=== PATIENT | male | born 1940 | race Caucasian/White ===

== ENCOUNTER 2025-01-06 14:21 | Inpatient (IN) | payer MEDICARE, OTHER ==
[~2025-01-06] VITALS: Ht 177.8 cm; Wt 79.4 kg
[2025-01-06 14:43] LABS: BASOPHILS % (AUTO) 0.7 % (0.0-2.0); EOSINOPHILS # (AUTO) 0.2 K/uL (0.0-0.7); EOSINOPHILS % (AUTO) 4.6 % (0.0-6.0); HEMATOCRIT 41 % (39-51); HEMOGLOBIN 13.8 g/dL (13.5-17.5); LYMPHOCYTES # (AUTO) 0.8 K/uL (0.8-4.8); LYMPHOCYTES % (AUTO) 15.8 % (20.0-44.0); MEAN CORPUSCULAR HEMOGLOBIN 31 PG (26.0-33.0); MEAN CORPUSCULAR HGB CONC 33 g/dl (31.0-36.0); MEAN CORPUSCULAR VOLUME 92 fL (80-96); MONOCYTES # (AUTO) 0.3 K/uL (0.1-1.30); MONOCYTES % (AUTO) 6.4 % (2.0-12.0); NEUTROPHILS # (AUTO) 3.5 K/uL (1.8-8.9); NEUTROPHILS % (AUTO) 72.5 % (43.0-81.0); PLATELET COUNT (AUTO) 128 K/uL (150-450); RED CELL DISTRIBUTION WIDTH 14.7 % (11.5-15.0); WHITE BLOOD COUNT (AUTO) 4.8 K/uL (4.3-11.0)
[2025-01-06 14:53] LABS: CALCIUM, SERUM 9.2 mg/dL (8.5-10.1); CARBON DIOXIDE 25 mmol/L (21-32); CHLORIDE 108 mmol/L (98-107); CREATININE 0.7 mg/dL (0.6-1.3); GLUCOSE 140 mg/dL (74-106); POTASSIUM 3.9 mmol/L (3.5-5.1); SODIUM SERUM 140 mmol/L (136-145); UREA NITROGEN, BLOOD 21 mg/dL (7-18)
[2025-01-06 14:58] LABS: INR 1.16 (0.91-1.10); PARTIAL THROMBOPLASTIN TIME 23.8 SEC (24.3-34.3); PROTHROMBIN TIME 11.8 SECS (9.2-11.1)
[2025-01-06 14:59] LABS: ALANINE AMINOTRANSFERASE 35 U/L (12-78); ALBUMIN 3.3 g/dL (3.4-5.0); ALKALINE PHOSPHATASE 153 U/L (46-116); ASPARTATE AMINOTRANSFERASE 26 U/L (15-37); BILIRUBIN,DIRECT 0.4 mg/dL (0.0-0.2); BILIRUBIN,TOTAL 1.2 mg/dL (0.2-1.0); TOTAL PROTEIN, SERUM 6.8 g/dL (6.4-8.2)
[2025-01-06] MEDS ORDERED: LORAZEPAM INJ 2 MG/ML VIAL ONE (15:46)
[2025-01-06] MEDS ORDERED: LOSA25TA27 PO (16:05)
[2025-01-06] MEDS ORDERED: ZINC56.713 TP (16:05)
[2025-01-06] MEDS ORDERED: TAMS-12 PO (16:05)
[2025-01-06] MEDS ORDERED: APIX2.5T PO (16:05)
[2025-01-06] MEDS ORDERED: OXYC1TAB8 PO (16:05)
[2025-01-06] MEDS ORDERED: MULT-213 PO (16:05)
[2025-01-06] MEDS ORDERED: VITS42.53 TP (16:05)
[2025-01-06] MEDS ORDERED: ACET325T53 PO ×2 (16:05)
[2025-01-06] MEDS ORDERED: HYDR-4076 PO (16:05)
[2025-01-06] MEDS ORDERED: ATOR80TA PO (16:05)
[2025-01-06] MEDS ORDERED: POLY15DR31 EACHEYE (16:05)
[2025-01-06] MEDS ORDERED: MAGN400O6 PO (16:05)
[2025-01-06] MEDS ORDERED: METO25TA4 PO (16:05)
[2025-01-06] MEDS ORDERED: POLY17PO4 PO (16:05)
[2025-01-06] MEDS: LORAZEPAM INJ 2 MG/ML VIAL IV ONE (16:20)
[2025-01-06] MEDS: LEVETIRACETAM (500MG) 1,000 MG in IV NS 0.9% 90 ML IV SCH ×2 (16:30→16:46)
[2025-01-06 16:31] LABS: APPEARANCE,URINE CLEAR (CLEAR); BILIRUBIN,URINE Negative (NEGATIVE); BLOOD, URINE Negative Ery/uL (NEGATIVE); COLOR,URINE YELLOW (YELLOW); KETONES,URINE Negative (NEGATIVE); LEUKOCYTE ESTERASE ,URINE Negative (NEGATIVE); PROTEIN,URINE 100 mg/dl (NEGATIVE); UGLUCOSE Negative (NEGATIVE); UROBILINOGEN,URINE 0.2 EU/dL (0.2)
[2025-01-06 16:32] LABS: NITRITE, URINE NEGATIVE (NEGATIVE)
[2025-01-06 16:33] LABS: ADD URINE CULTURE NO; BACTERIA,URINE None seen /HPF (None Seen); RBC,URINE 0-2 /HPF (0-2); SQUAMOUS EPITHELIAL CELL,UR None Seen /HPF (None Seen); WBC,URINE 0-2 /HPF (0-3)
[2025-01-06] MEDS ORDERED: ONDANSETRON HCL/PF 4 MG/2 ML VIAL IVP PRN (17:00)
[2025-01-06] MEDS ORDERED: ACETAMINOPHEN 325 MG TABLET PO PRN (17:00)
[2025-01-06] MEDS ORDERED: LEVETIRACETAM (500MG) 500 MG in IV NS 0.9% 100 ML IV SCH (17:00)
[2025-01-06] MEDS ORDERED: LORAZEPAM INJ 2 MG/ML VIAL IV SCH (17:00)
[2025-01-06] MEDS: POLYVINYL ALCOHOL 15 ML BOTTLE EACHEYE SCH (17:00)
[2025-01-06] MEDS ORDERED: MAG HYDROX/AL HYDROX/SIMETH 30 ML UDC PO PRN (17:00)
[2025-01-06] MEDS ORDERED: MAGNESIUM HYDROXIDE 30 ML UDC PO PRN (17:00)
[2025-01-06] MEDS ORDERED: DEXTROSE 50%-WATER 50 ML DISP.SYRIN IV PRN (19:30)
[2025-01-06] MEDS: DOXYCYCLINE 100 MG in IV D5W 100 ML IV SCH (21:00)
[2025-01-06] MEDS: ATORVASTATIN 40 MG TABLET PO SCH (22:00)
[2025-01-06] MEDS: TAMSULOSIN 0.4 MG CAP.SR.24H PO SCH (22:00)
[2025-01-06] MEDS: BLOOD SUGAR DIAGNOSTIC 1 EACH STRIP IN SCH (22:31)
[2025-01-07] MEDS ORDERED: DOXYCYCLINE 100 MG VIAL ONE (00:30)
[2025-01-07 02:30] VITALS: BP 177/124; TEMP 97.7; O2SAT 100
[2025-01-07] MEDS: IV NS 0.9% 1,000 ML IV PRN (02:39)
[2025-01-07] MEDS: hydrALAZINE HCL IV 20 MG VIAL IV PRN (04:17)
[2025-01-07] MEDS ORDERED: LEVETIRACETAM (500MG) 500 MG/5 ML VIAL IV ONE (04:31)
[2025-01-07 04:33] VITALS: BP 141/90; TEMP 97.9; O2SAT 99
[2025-01-07 06:44] LABS: BASOPHILS % (AUTO) 0.3 % (0.0-2.0); EOSINOPHILS % (AUTO) 0.6 % (0.0-6.0); HEMATOCRIT 40 % (39-51); HEMOGLOBIN 13.6 g/dL (13.5-17.5); LYMPHOCYTES # (AUTO) 0.7 K/uL (0.8-4.8); LYMPHOCYTES % (AUTO) 10.4 % (20.0-44.0); MEAN CORPUSCULAR HEMOGLOBIN 31 PG (26.0-33.0); MEAN CORPUSCULAR HGB CONC 34 g/dl (31.0-36.0); MEAN CORPUSCULAR VOLUME 93 fL (80-96); MONOCYTES # (AUTO) 0.4 K/uL (0.1-1.30); NEUTROPHILS % (AUTO) 83.7 % (43.0-81.0); PLATELET COUNT (AUTO) 131 K/uL (150-450); RED BLOOD CELL COUNT(AUTO) 4.35 MIL/uL (4.5-6.0); WHITE BLOOD COUNT (AUTO) 7.1 K/uL (4.3-11.0)
[2025-01-07 06:54] LABS: CALCIUM, SERUM 9.3 mg/dL (8.5-10.1); CREATININE 0.6 mg/dL (0.6-1.3); MAGNESIUM 1.9 mg/dL (1.8-2.4); PHOSPHORUS 2.6 mg/dL (2.5-4.9); POTASSIUM 3.7 mmol/L (3.5-5.1)
[2025-01-07 07:30] VITALS: BP 139/83; TEMP 98.1; O2SAT 97
[2025-01-07] MEDS: LOSARTAN POTASSIUM 25 MG TABLET PO SCH (08:44)
[2025-01-07] MEDS: APIXABAN 2.5 MG TABLET PO SCH (08:44)
[2025-01-07] MEDS: MULTIVIT W/MINERALS 1 TAB TABLET PO SCH (08:45)
[2025-01-07] MEDS: POLYETHYLENE GLYCOL 3350 17 GM POWD.PACK PO SCH (08:45)
[2025-01-07] MEDS: METOPROLOL SUCCINATE 25 MG TAB.SR.24H PO SCH (08:45)
[2025-01-07] MEDS: LEVETIRACETAM (500MG) 1,000 MG in IV NS 0.9% 90 ML IV SCH (09:17)
[2025-01-07] MEDS: Z GUARD REMEDY 4 OZ OINT TP PRN (09:19)
[2025-01-07] MEDS: CEFTRIAXONE 1 G in IV D5W 50 ML IV SCH (09:53)
[2025-01-07] MEDS: INSULIN REGULAR, HUMAN 100 UNIT/ML 3 ML VIAL SQ PRN (11:09)
[2025-01-07 16:00] VITALS: BP 153/92; TEMP 97.2; O2SAT 99
[2025-01-07 20:00] VITALS: BP 147/92; TEMP 97.7; O2SAT 97
[2025-01-07] MEDS: LEVETIRACETAM IV SCH (20:51)
[2025-01-07] MEDS: NS 0.9% IV SCH (20:51)
[2025-01-08] VITALS: BP 180/98; TEMP 98.8; O2SAT 97
[2025-01-08 04:00] VITALS: BP 149/99; TEMP 98.4; O2SAT 96
[2025-01-08 06:17] LABS: BASOPHILS % (AUTO) 0.5 % (0.0-2.0); EOSINOPHILS # (AUTO) 0.1 K/uL (0.0-0.7); HEMATOCRIT 38 % (39-51); HEMOGLOBIN 12.8 g/dL (13.5-17.5); LYMPHOCYTES # (AUTO) 0.8 K/uL (0.8-4.8); MEAN CORPUSCULAR HEMOGLOBIN 31 PG (26.0-33.0); MEAN CORPUSCULAR HGB CONC 34 g/dl (31.0-36.0); MEAN CORPUSCULAR VOLUME 93 fL (80-96); MONOCYTES # (AUTO) 0.5 K/uL (0.1-1.30); NEUTROPHILS # (AUTO) 4.5 K/uL (1.8-8.9); NEUTROPHILS % (AUTO) 77.5 % (43.0-81.0); PLATELET COUNT (AUTO) 127 K/uL (150-450); RED BLOOD CELL COUNT(AUTO) 4.09 MIL/uL (4.5-6.0); WHITE BLOOD COUNT (AUTO) 5.9 K/uL (4.3-11.0)
[2025-01-08 06:26] LABS: CALCIUM, SERUM 8.9 mg/dL (8.5-10.1); CREATININE 0.6 mg/dL (0.6-1.3); POTASSIUM 3.4 mmol/L (3.5-5.1)
[2025-01-08 08:00] VITALS: BP 167/88; TEMP 98.4; O2SAT 96
[2025-01-08] MEDS: POTASSIUM CHLORIDE 20 MEQ TAB.PRT.SR PO ONE (11:04)
[2025-01-08 12:00] VITALS: BP 197/98; TEMP 97.7; O2SAT 100
[2025-01-08 16:00] VITALS: BP 173/95; TEMP 97.7; O2SAT 96
[2025-01-08 20:00] VITALS: BP 179/98; TEMP 97.5; O2SAT 99
[2025-01-09] VITALS: BP 120/86; TEMP 97.7; O2SAT 97
[2025-01-09 04:00] VITALS: BP 184/87; TEMP 97.7; O2SAT 99
[2025-01-09 06:42] LABS: BASOPHILS % (AUTO) 0.5 % (0.0-2.0); EOSINOPHILS # (AUTO) 0.3 K/uL (0.0-0.7); EOSINOPHILS % (AUTO) 5.3 % (0.0-6.0); HEMATOCRIT 39 % (39-51); HEMOGLOBIN 13.1 g/dL (13.5-17.5); LYMPHOCYTES # (AUTO) 0.7 K/uL (0.8-4.8); LYMPHOCYTES % (AUTO) 14.5 % (20.0-44.0); MEAN CORPUSCULAR HEMOGLOBIN 31 PG (26.0-33.0); MEAN CORPUSCULAR HGB CONC 34 g/dl (31.0-36.0); MEAN CORPUSCULAR VOLUME 92 fL (80-96); MONOCYTES # (AUTO) 0.4 K/uL (0.1-1.30); NEUTROPHILS # (AUTO) 3.5 K/uL (1.8-8.9); NEUTROPHILS % (AUTO) 71.7 % (43.0-81.0); PLATELET COUNT (AUTO) 116 K/uL (150-450); RED BLOOD CELL COUNT(AUTO) 4.19 MIL/uL (4.5-6.0); RED CELL DISTRIBUTION WIDTH 14.8 % (11.5-15.0); WHITE BLOOD COUNT (AUTO) 4.9 K/uL (4.3-11.0)
[2025-01-09 07:08] LABS: CALCIUM, SERUM 8.9 mg/dL (8.5-10.1); CREATININE 0.5 mg/dL (0.6-1.3); POTASSIUM 3.5 mmol/L (3.5-5.1)
[2025-01-09 08:00] VITALS: BP 141/88; TEMP 99; O2SAT 96
[2025-01-09 12:00] VITALS: BP 145/87; TEMP 97.7; O2SAT 99
[2025-01-09 20:00] VITALS: BP 150/77; TEMP 97.3; O2SAT 98
[2025-01-09] MEDS: LEVETIRACETAM SOL (5 ML) 100 MG/ML UDC PO SCH (21:06)
[2025-01-10 07:09] LABS: BASOPHILS % (AUTO) 0.4 % (0.0-2.0); EOSINOPHILS # (AUTO) 0.2 K/uL (0.0-0.7); HEMATOCRIT 39 % (39-51); HEMOGLOBIN 13.1 g/dL (13.5-17.5); LYMPHOCYTES # (AUTO) 0.7 K/uL (0.8-4.8); LYMPHOCYTES % (AUTO) 12.3 % (20.0-44.0); MEAN CORPUSCULAR HEMOGLOBIN 31 PG (26.0-33.0); MEAN CORPUSCULAR HGB CONC 34 g/dl (31.0-36.0); MEAN CORPUSCULAR VOLUME 92 fL (80-96); MONOCYTES # (AUTO) 0.4 K/uL (0.1-1.30); MONOCYTES % (AUTO) 7.3 % (2.0-12.0); NEUTROPHILS # (AUTO) 4.4 K/uL (1.8-8.9); PLATELET COUNT (AUTO) 109 K/uL (150-450); RED CELL DISTRIBUTION WIDTH 14.6 % (11.5-15.0); WHITE BLOOD COUNT (AUTO) 5.8 K/uL (4.3-11.0)
[2025-01-10 07:40] LABS: CALCIUM, SERUM 8.8 mg/dL (8.5-10.1); CREATININE 0.6 mg/dL (0.6-1.3); POTASSIUM 3.7 mmol/L (3.5-5.1)
[2025-01-10] MEDS ORDERED: GADOTERATE MEGLUMINE 10 MMOL/20 ML VIAL IV ONE (07:44)
[2025-01-10 08:00] VITALS: BP 196/111; TEMP 97.9; O2SAT 99
[2025-01-10 16:00] VITALS: BP 197/119; TEMP 98.2; O2SAT 98
[2025-01-10 20:00] VITALS: BP 152/99; TEMP 97.7; O2SAT 96
[2025-01-11 07:30] VITALS: BP 178/90; TEMP 97.3; O2SAT 98
[2025-01-11 07:43] VITALS: BP 178/90; TEMP 97.3; O2SAT 98
[2025-01-11 07:53] LABS: BASOPHILS % (AUTO) 0.7 % (0.0-2.0); EOSINOPHILS # (AUTO) 0.3 K/uL (0.0-0.7); EOSINOPHILS % (AUTO) 6.8 % (0.0-6.0); HEMATOCRIT 39 % (39-51); HEMOGLOBIN 13.1 g/dL (13.5-17.5); LYMPHOCYTES # (AUTO) 0.7 K/uL (0.8-4.8); LYMPHOCYTES % (AUTO) 14.6 % (20.0-44.0); MEAN CORPUSCULAR HEMOGLOBIN 31 PG (26.0-33.0); MEAN CORPUSCULAR HGB CONC 34 g/dl (31.0-36.0); MEAN CORPUSCULAR VOLUME 92 fL (80-96); MONOCYTES # (AUTO) 0.5 K/uL (0.1-1.30); MONOCYTES % (AUTO) 9.3 % (2.0-12.0); NEUTROPHILS # (AUTO) 3.5 K/uL (1.8-8.9); NEUTROPHILS % (AUTO) 68.6 % (43.0-81.0); PLATELET COUNT (AUTO) 109 K/uL (150-450); RED CELL DISTRIBUTION WIDTH 14.5 % (11.5-15.0); WHITE BLOOD COUNT (AUTO) 5.1 K/uL (4.3-11.0)
[2025-01-11 08:12] LABS: CALCIUM, SERUM 8.7 mg/dL (8.5-10.1); CREATININE 0.6 mg/dL (0.6-1.3); POTASSIUM 3.6 mmol/L (3.5-5.1)
[2025-01-11] MEDS: FOLIC ACID 1 MG TABLET PO SCH (08:30)
[2025-01-11] MEDS: CYANOCOBALAMIN 1,000 MCG/ML VIAL IM SCH (08:32)
[2025-01-11] MEDS ORDERED: LEVE100S PO (12:30)
[2025-01-11] MEDS ORDERED: Folic Acid PO (12:30)
[2025-01-11 17:23] VITALS: BP 195/92
== END 2025-01-11 18:00 | DRG 100 ==
LOC: ER 14:23 → TELE IN 22:59 → TELE 01-07 01:40 → MED 01-09 21:48
PROVIDERS: ADMIT Nurse Practitioner Acute Care; ATTEND Nurse Practitioner Acute Care
DX: R56.9 Unspecified convulsions (principal); G92.8 Other toxic encephalopathy; J15.69 Pneumonia due to other Gram-negative bacteria; E44.1 Mild protein-calorie malnutrition; I50.32 Chronic diastolic (congestive) heart failure; E66.9 Obesity, unspecified; Z66 Do not resuscitate; Z86.73 Personal history of transient ischemic attack (TIA), and cerebral infarction without residual deficits; I48.0 Paroxysmal atrial fibrillation; N40.0 Benign prostatic hyperplasia without lower urinary tract symptoms; M81.0 Age-related osteoporosis without current pathological fracture; I11.0 Hypertensive heart disease with heart failure; Z98.890 Other specified postprocedural states; E78.5 Hyperlipidemia, unspecified; E11.36 Type 2 diabetes mellitus with diabetic cataract; E11.51 Type 2 diabetes mellitus with diabetic peripheral angiopathy without gangrene; R26.2 Difficulty in walking, not elsewhere classified; E88.09 Other disorders of plasma-protein metabolism, not elsewhere classified; I25.10 Atherosclerotic heart disease of native coronary artery without angina pectoris; L89.156 Pressure-induced deep tissue damage of sacral region; Z79.01 Long term (current) use of anticoagulants; E03.8 Other specified hypothyroidism; D64.9 Anemia, unspecified; D32.9 Benign neoplasm of meninges, unspecified; Z88.8 Allergy status to other drugs, medicaments and biological substances; Z79.899 Other long term (current) drug therapy; R79.89 Other specified abnormal findings of blood chemistry
CPT/HCPCS: 36415; 70450-TC; 70553-TC; 71045-TC; 80048-TC; 80076-TC; 81001; 82607-TC; 82962-TC; 83735-TC; 84100-TC; 84439-TC; 84443-TC; 84484-TC; 85025-TC; 85730-TC; 87081-TC; 92526; 92611-TC; A4223; A6253; A9575; G0378; J0360; J0696; J1815; J1953; J2060; J3420; J3490; J7030; J7060